=== PATIENT | male | born 1975 | race Caucasian/White ===

== ENCOUNTER 2019-10-30 12:58 | Outpatient (RCR) | payer OTHER, SELFPAY ==
[2018-12-21 08:51] VITALS: BMI 20.1
== END 2019-11-13 23:59 ==
LOC: EMPH 12:58
PROVIDERS: Visit Provider Family Medicine Geriatric Medicine
DX: Z11.59 Encounter for screening for other viral diseases (principal)
CPT/HCPCS: 87635; U0003

== ENCOUNTER 2020-01-02 08:47 | Outpatient (RCR) | payer OTHER, SELFPAY ==
[2018-12-21 08:51] VITALS: BMI 20.1
== END 2020-01-13 23:59 ==
LOC: EMPH 08:47
PROVIDERS: Referring Provider Family Medicine Geriatric Medicine; Visit Provider Family Medicine Geriatric Medicine
DX: Z03.818 Encounter for observation for suspected exposure to other biological agents ruled out (principal)
CPT/HCPCS: 87426

== ENCOUNTER 2020-01-23 09:31 | Outpatient (RCR) | payer OTHER, SELFPAY ==
[2018-12-21 08:51] VITALS: BMI 20.1
[2020-01-23 11:46] LABS: Probe Check PASS
== END 2020-02-13 23:59 ==
LOC: EMPH 09:31
PROVIDERS: Referring Provider Family Medicine Geriatric Medicine; Visit Provider Family Medicine Geriatric Medicine
DX: U07.1 COVID-19 (principal)
CPT/HCPCS: 87426; 87635; U0002

== ENCOUNTER 2020-05-04 09:58 | Outpatient (RCR) | payer OTHER, SELFPAY ==
[2018-12-21 08:51] VITALS: BMI 20.1
== END 2020-05-13 23:59 ==
LOC: EMPH 09:58
PROVIDERS: Visit Provider Family Medicine Geriatric Medicine
DX: Z03.818 Encounter for observation for suspected exposure to other biological agents ruled out (principal)
CPT/HCPCS: 87426

== ENCOUNTER 2020-05-29 16:58 | Outpatient (RCR) | payer OTHER, SELFPAY ==
[2018-12-21 08:51] VITALS: BMI 20.1
== END 2020-06-12 23:59 ==
LOC: LABSPEC 16:58
PROVIDERS: Visit Provider Family Medicine Geriatric Medicine
DX: Z03.818 Encounter for observation for suspected exposure to other biological agents ruled out (principal)
CPT/HCPCS: 87426

== ENCOUNTER 2020-07-10 09:11 | Outpatient (RCR) | payer OTHER, SELFPAY ==
[2018-12-21 08:51] VITALS: BMI 20.1
== END 2020-07-13 23:59 ==
LOC: LABSPEC 09:11
PROVIDERS: PCP Family Medicine; Referring Provider Family Medicine Geriatric Medicine; Visit Provider Family Medicine Geriatric Medicine
DX: Z03.818 Encounter for observation for suspected exposure to other biological agents ruled out (principal)
CPT/HCPCS: 87426

== ENCOUNTER 2020-09-04 09:28 | Outpatient (RCR) | payer OTHER, SELFPAY ==
[2018-12-21 08:51] VITALS: BMI 20.1
== END 2020-09-12 23:59 ==
LOC: EMPH 09:28
PROVIDERS: PCP Family Medicine; Referring Provider Family Medicine Geriatric Medicine; Visit Provider Family Medicine Geriatric Medicine
DX: Z03.818 Encounter for observation for suspected exposure to other biological agents ruled out (principal)
CPT/HCPCS: 87426

== ENCOUNTER 2020-12-03 14:00 | Outpatient (RCR) | payer OTHER, SELFPAY ==
[2018-12-21 08:51] VITALS: BMI 20.1
== END 2020-12-13 23:59 ==
LOC: EMPH 14:00
PROVIDERS: PCP Family Medicine; Referring Provider Family Medicine Geriatric Medicine; Visit Provider Family Medicine Geriatric Medicine
DX: Z03.818 Encounter for observation for suspected exposure to other biological agents ruled out (principal)
CPT/HCPCS: 87426

== ENCOUNTER 2021-04-12 12:29 | Outpatient (RCR) | payer OTHER, SELFPAY ==
[2020-12-14 00:03] VITALS: BMI 20.1
== END 2021-04-12 23:59 ==
LOC: EMPH 12:29
PROVIDERS: PCP Family Medicine; Referring Provider Family Medicine Geriatric Medicine; Visit Provider Family Medicine Geriatric Medicine
DX: Z03.818 Encounter for observation for suspected exposure to other biological agents ruled out (principal)
CPT/HCPCS: 87426

== ENCOUNTER 2021-04-15 10:36 | Outpatient (RCR) | payer OTHER, SELFPAY ==
[2021-04-13 00:07] VITALS: BMI 20.1
== END 2021-05-13 23:59 ==
LOC: EMPH 10:36
PROVIDERS: PCP Family Medicine; Referring Provider Family Medicine Geriatric Medicine; Visit Provider Family Medicine Geriatric Medicine
DX: Z03.818 Encounter for observation for suspected exposure to other biological agents ruled out (principal)
CPT/HCPCS: 87426

== ENCOUNTER → 2024-01-23 | Outpatient (CLI) | payer OTHER, SELFPAY ==
[2024-01-23 15:25] LABS: PSA,Total - Annual Screen 0.31 ng/mL (0.00-4.00)
== END | disposition home or self-care (01) ==
LOC: LAB 14:21
PROVIDERS: PCP Family Medicine; Referring Provider Family Medicine; Visit Provider Family Medicine
DX: Z12.5 Encounter for screening for malignant neoplasm of prostate (principal)
CPT/HCPCS: 36415; 84153; G0103

== ENCOUNTER 2024-09-17 10:56 | Day surgery (SDC) | payer OTHER, SELFPAY ==
[2024-09-17] VITALS (8 sets, daily range): BP systolic 88–102; BP diastolic 62–80; PULSE 47–51; RESP 12–18; TEMP 36.1–36.4; O2SAT 96–100; BMI 20.2
[2024-09-17] MEDS: Lactated Ringers 1,000 ML 15 ML IV (11:12)
--- NOTE | 2024-09-17 11:41 | PRE.ANES_ITS ---
ASA Classification* ASA Classification ASA Classification: 1 Assessment & Plan Anesthesia* Anesthesia Assessment Anesthesia Assessment: Discussed sedation and/or anesthesia options, risks, benefits, and alternatives with patient/parents/legal guardian/POA. Questions invited. The patient/parents/legal guardian/POA seems to understand and agrees to proceed with anesthesia plan. Reviewed the physical assessment, medical history, allergy history and patient home medications list prior to surgery/procedure/anesthetic and documented any changes. Performed airway and anesthesia risk assessments. Anesthesia Type Anesthesia Type: MAC History Source History Obtained from:: Patient and Chart Anesthesia Focused Assessment* Temperature: 97.5 F Pulse Rate: 47 Blood Pressure: 102/80 Respiratory Rate: 16 Pulse Ox: 100 Oxygen Delivery Method: Room Air Airway Assessment Mouth opens: >3 cm Mallampati Score: II Teeth Condition: Intact Neck Range of motion (ROM): Full ROM Labs Anesthesia Preop lab: CBC WBC 4.8 K/mm3 (4.4-11.0) 06/11/24 10:43 06/11/24 RBC 4.73 M/mm3 (4.6-6.2) 06/11/24 10:43 06/11/24 Hgb 14.3 g/dL (13.0-16.5) 06/11/24 10:43 06/11/24 Hct 42.3 % (40-54) 06/11/24 10:43 06/11/24 Plt Count 224 K/mm3 (150-450) 06/11/24 10:43 06/11/24 CHEMISTRY Potassium 4.3 mmol/L (3.3-5.1) 06/11/24 10:43 06/11/24 Sodium 139 mmol/L (133-145) 06/11/24 10:43 06/11/24 Phosphorus 3.4 mg/dL (2.7-4.5) 06/11/24 10:43 06/11/24 BUN 26 mg/dL (4-19) H 06/11/24 10:43 06/11/24 Creatinine 0.93 mg/dL (0.70-1.20) 06/11/24 10:43 06/11/24 Glucose 88 mg/dL (70-99) 06/11/24 10:43 06/11/24 COAG Pre-Assessment Diagnosis/Proposed Procedure Planned Operative Procedure(s): colonoscopy Anesthesia History Anesthesia History - supervisor grain and yeast plants: Anesthesia History - supervisor grain and yeast plants Hx Hospitalization No 09/13/24 08:24 Any Problems With Anesthesia No 09/13/24 08:24 Cholinesterase deficiency No 09/13/24 08:24 You/Your Family Experience No 09/13/24 08:24 fever (hyperthermia) with Relationship Recent Exposure to Contagious No 09/17/24 11:18 Disease Does patient have nerve No 09/13/24 08:24 stimulator Patient instructed to have device shut off --Does patient have Pacemaker No 09/17/24 11:18 or ICD? When Was Last Pacemaker Check QUESTION #4 FULL TEXT: You/Your Family Experience fever (hyperthermia) with Anesthesia Last Oral Intake Last Oral intake: Last Oral Intake NPO since 08:00 09/17/24 11:18 Meds taken in AM with sips of water? Meds patient instructed to take am of surgery PONV PONV - supervisor grain and yeast plants: PONV - supervisor grain and yeast plants Female No 09/13/24 08:24 HX of Motion Sickness No 09/13/24 08:24 HX of N/V After Surgery No 09/13/24 08:24 Non-Smoker Yes 09/13/24 08:24 Duration of Surgery greater No 09/13/24 08:24 than 60 minutes Number of Risk Factors 1 09/13/24 08:24 PONV Score Low Risk 09/13/24 08:24 Height & Weight Height & Weight: Anesthesia: Height & Weight Height 6 ft 2 in 09/17/24 11:18 Weight: 71.4 kg 09/17/24 11:18 Body Mass Index (BMI) 20.2 09/17/24 11:18 Respiratory Assessment Respiratory Assessment - supervisor grain and yeast plants: Respiratory Tract Infection Hx - supervisor grain and yeast plants Hx Respiratory Tract Infection No 09/13/24 08:24 STOP Sleep Apnea STOP Sleep Apnea - supervisor grain and yeast plants: STOP Sleep Apnea - supervisor grain and yeast plants Hx Hypertension No 09/13/24 08:24 Hx Sleep Apnea No 09/13/24 08:24 CPAP No 01/19/15 10:46 BIPAP No 01/14/15 08:31 Do you snore loudly (louder Yes 09/13/24 08:24 than talking or can be heard Do you often feel tired/ Yes 09/13/24 08:24 fatigued/ sleepy during daytime? Has anyone observed you stop No 09/13/24 08:24 breathing during sleep? STOP Results Positive 09/13/24 08:24 QUESTION #5 FULL TEXT : Do you snore loudly (louder than talking or can be heard through closed doors)? Tobacco Use History Tobacco Use History - supervisor grain and yeast plants: Tobacco Use History - supervisor grain and yeast plants Tobacco Use Smoking Status Never smoker 09/13/24 08:24 Hx Tobacco Use No 09/13/24 08:24 Years Smoking Packs Smoked per Day Smoking Cessation Date was within the last 15 years Hx Smoking Cessation Date Hx Smoking Cessation Counseling Hematologic Medial History Hematologic Hx - supervisor grain and yeast plants: Hematologic Medical Hx - doughnut fryer Hx of Blood Transfusion No 09/13/24 08:24 Hx of Transfusion in last 3 No 09/13/24 08:24 Months Date of Last Transfusion (if within last 3 months) Ever experience any problems No 09/13/24 08:24 with transfusion(s)? Specify any problems Hx of Preganancy in last 3 N/A 09/13/24 08:24 Months Nurse Filling Out Transfusion JZOLLINGE 09/13/24 08:24 & Questions: Date: 09/13/24 09/13/24 08:24 Time: 08:09/13/24 08:24 Patient unable to answer at this time (ie. confused, unrespo /Reproduction History /Reproductive History - supervisor grain and yeast plants: /Reproductive Hx- supervisor grain and yeast plants Hx Now No 09/13/24 08:24 Gestational Age (in weeks): EDC: Hx Hx Para Hx Section SAB No 09/13/24 08:24 Active Medications Active Medications: Current Medications Generic Name Dose Route Start Last Admin Trade Name Freq PRN Reason Stop Dose Admin Lactated Ringer's 1,000 mls @ 15 mls/hr 09/17/24 11:15 09/17/24 11:12 IV 15 mls/hr .Q48H LIDA Administration PFSH Medical History Wears contact lenses Wears glasses Alcohol use Non-smoker Cellulitis of left ankle Bee sting Hay fever Allergy/AdvReac Type Severity Reaction Status Date / Time No Known Allergies Allergy Verified 09/17/24 11:12 Family History Other Skin cancer Surgical History History of hernia repair Social History Smoking Status: Never smoker alcohol intake: current alcohol intake frequency: a few times a month Alcohol type: beer Review of Systems (Anesthesia) ROS Narrative System reviewed and no additional complaints, except as documented.
--- NOTE | 2024-09-17 12:13 | HP.PCM_ITS ---
[facility] - General General Date of Admission: 09/17/24 Date of Service: 09/17/24 Chief Complaint: Screening colonoscopy HPI Narrative ANCELMO HARP, is a 49 M who presents today for screening colonoscopy. He has never had a colonoscopy in the past. He has not had any problems with his bowels. He does not take any medicines on daily basis. He has no known drug allergies. [facility] Medical History Wears contact lenses Wears glasses Alcohol use Non-smoker Cellulitis of left ankle Bee sting Hay fever Allergy/AdvReac Type Severity Reaction Status Date / Time No Known Allergies Allergy Verified 09/17/24 11:12 Family History Other Skin cancer Surgical History History of hernia repair Social History Smoking Status: Never smoker alcohol intake: current alcohol intake frequency: a few times a month Alcohol type: beer ROS Constitutional Constitutional: Denies fatigue, fever(s), poor appetite, weight gain or weight loss Gastrointestinal Gastrointestinal: Denies belching, bloating, change in bowel habits, change in stool character, chewing difficulty, coffee ground emesis, constipation, cramping, diarrhea, dyspepsia, dysphagia, early satiety, excessive flatus, fecal incontinence, heartburn, hematemesis, hematochezia, hemorrhoids, loose stools, melena, nausea, odynophagia, rectal bleeding, tenesmus, vomiting or weight changes Vital Signs Vital Signs Vital Signs: 09/17/24 11:18 09/17/24 11:18 09/17/24 11:43 Temperature 97.5 F L 97.5 F L Temperature Source Temporal Pulse Rate 47 L 47 L Respiratory Rate 16 16 Respiratory Pattern Normal Blood Pressure 102/80 102/80 Blood Pressure Mean 87 Blood Pressure Source Monitor Blood Pressure Position Semi-Fowlers Blood Pressure Location Left Arm Pulse Ox 100 100 Oxygen Delivery Method Room Air Room Air Weight Weight: 157 lb 6.561 oz Body Mass Index (BMI) 20.2 Physical Exam Const alert, oriented x3, no apparent distress and healthy appearing General Appearance: cooperative GI normal to inspection, nondistended, normoactive bowel sounds, soft to palpation, non-tender and non-distended Percussion: normal to percussion Rectal Exam: deferred Assessment & Plan Assessment/Plan (1) Encounter for screening colonoscopy: PLAN: He was explained alternatives, risk and benefits include not withstanding bleeding, infection, sepsis, perforation, need for emergent urgent . He will have an ASA of 3.
--- NOTE | 2024-09-17 12:55 | OP.COLON_ITS ---
Patient Name: Michelet Berg Procedure Date: 09/17/2024 12:31 PM Date of : 1975 Age: 49 Procedure: Colonoscopy Indications: Screening for colorectal malignant neoplasm Providers: Nick Edmond DO Referring MD: Patrice Hawkins Medicines: Monitored Anesthesia Care Patient Profile: This is a 49 year old male. Refer to note in patient chart for documentation of history and physical. Last Colonoscopy: none. The patient's first colonoscopy is today. Complications: No immediate complications. Procedure: Pre-Anesthesia Assessment: - Prior to the procedure, a History and Physical was performed, and patient medications and allergies were reviewed. The patient is competent. The risks and benefits of the procedure and the sedation options and risks were discussed with the patient. All questions were answered and informed consent was obtained. Patient identification and proposed procedure were verified by the physician in the pre-procedure area. Mental Status Examination: alert and oriented. Airway Examination: normal oropharyngeal airway and neck mobility. Respiratory Examination: clear to auscultation. CV Examination: normal. Prophylactic Antibiotics: The patient does not require prophylactic antibiotics. Prior Anticoagulants: The patient has taken no anticoagulant or antiplatelet agents except for NSAID medication. ASA Grade Assessment: II - A patient with mild systemic disease. After reviewing the risks and benefits, the patient was deemed in satisfactory condition to undergo the procedure. The anesthesia plan was to use monitored anesthesia care (MAC). Immediately prior to administration of medications, the patient was re-assessed for adequacy to receive sedatives. The heart rate, respiratory rate, oxygen saturations, blood pressure, adequacy of pulmonary ventilation, and response to care were monitored throughout the procedure. The physical status of the patient was re-assessed after the procedure. After I obtained informed consent, the scope was passed under direct vision. Throughout the procedure, the patient's blood pressure, pulse, and oxygen saturations were monitored continuously. The Colonoscope was introduced through the anus and advanced to the cecum, identified by appendiceal orifice and ileocecal valve. The colonoscopy was performed without difficulty. The patient tolerated the procedure well. The quality of the bowel preparation was adequate. The ileocecal valve, appendiceal orifice, and rectum were photographed. Scope In: 12:37:37 PM Scope Withdrawal Time 0 hours 10 minutes 9 seconds Scope Out: 12:51:20 PM Total Procedure Duration Time 0 hours 13 minutes 43 seconds Findings: The perianal and digital rectal examinations were normal. The colon (entire examined portion) appeared normal. Impression: - The entire examined colon is normal. - No specimens collected. Recommendation: - Discharge patient to home. - Resume previous diet. - Continue present medications. - Repeat colonoscopy in 10 years for screening purposes. Procedure Code(s): --- Professional --- G0121, Colorectal cancer screening; colonoscopy on individual not meeting criteria for high risk CPT copyright 2021 [employer]. All rights reserved. The codes documented in this report are preliminary and upon hospital admissions officer review may be revised to meet current compliance requirements. Nick Edmond DO 09/17/2024 12:54:59 PM This report has been signed electronically. Number of Addenda: 0 Note Initiated On: 09/17/2024 12:31 PM
--- NOTE | 2024-09-17 12:55 | OP.PROVAT_ITS ---
09/17/2024 Patrice Hawkins Re : Colonoscopy procedure for Michelet Berg [place] This procedure was performed on Tuesday, September 17, 2024. My impressions and recommendations are as follows: Impressions : - The entire examined colon is normal. - No specimens collected. Recommendations : - Discharge patient to home. - Resume previous diet. - Continue present medications. - Repeat colonoscopy in 10 years for screening purposes. My findings are described in the full procedure note, which is enclosed. If I can be of further assistance, please feel free to contact me at . Sincerely, Nick Edmond, 09/17/2024 12:54:59 PM This report has been signed electronically.
--- NOTE | 2024-09-17 13:01 | PCM.POST.ANE ---
Anesthesia: Postop Eval I Current Vital Signs Temperature: 97 F Pulse Rate: 50 Blood Pressure: 98/62 Respiratory Rate: 16 Pulse Ox: 100 Assessment Airway patent: Yes Spontaneous unlabored respirations: Yes nausea: No Vomiting: No Anesthesia Complication: No Fluid Hydration Crystalloid volume administer (ml): 400 Total IV fluid infused: 400 Progress Note Anesthesia document: Postop Eval 1 completed: Yes
--- NOTE | 2024-09-17 17:03 | POSTOPAN2_ITS ---
Anesthesia Postop Eval I Sum Postop Eval Completion status Anesthesia document: Postop Eval 1 completed: Yes Anesthesia Postop Eval I Summary Anesthesia Postop Eval I Summary: Anesthesia Postop Eval I: Assessment Summary Airway patent Yes 09/17/24 13:01 [email or web address] Spontaneous unlabored Yes 09/17/24 13:01 [email or web address] respirations Mental status nausea No 09/17/24 13:01 [email or web address] Vomiting No 09/17/24 13:01 [email or web address] Anesthesia Postop Eval I: Fluid Summary Crystalloid volume administer 400 09/17/24 13:01 [email or web address] (ml) Colloids volume administered ( ml) Blood Product volume administered (ml) Total IV fluid infused 400 09/17/24 13:01 [email or web address] Anesthesia Postop Eval I: Summary Notes Anesthesia Complication No 09/17/24 13:01 [email or web address] Anesthesia Complication Comment: Post-operative progress note Anesthesia: Postop Eval II Evaluation Mental status: Awake and Calm Pain Level: 1 nausea: No Vomiting: No Complications Anesthesia Complication: No
--- NOTE | 2024-09-17 17:03 | PCM.POSTANE2 ---
Anesthesia Postop Eval I Sum Postop Eval Completion status Anesthesia document: Postop Eval 1 completed: Yes Anesthesia Postop Eval I Summary Anesthesia Postop Eval I Summary: Anesthesia Postop Eval I: Assessment Summary Airway patent Yes 09/17/24 13:01 RECOVERY OPERATOR [email or web address] Spontaneous unlabored Yes 09/17/24 13:01 RECOVERY OPERATOR [email or web address].[email or web address] respirations Mental status nausea No 09/17/24 13:01 RECOVERY OPERATOR [email or web address] Vomiting No 09/17/24 13:01 RECOVERY OPERATOR [email or web address] Anesthesia Postop Eval I: Fluid Summary Crystalloid volume administer 400 09/17/24 13:01 RECOVERY OPERATOR [email or web address].[email or web address] (ml) Colloids volume administered ( ml) Blood Product volume administered (ml) Total IV fluid infused 400 09/17/24 13:01 RECOVERY OPERATOR [email or web address] Anesthesia Postop Eval I: Summary Notes Anesthesia Complication No 09/17/24 13:01 RECOVERY OPERATOR [email or web address].[email or web address] Anesthesia Complication Comment: Post-operative progress note Anesthesia: Postop Eval II Evaluation Mental status: Awake and Calm Pain Level: 1 nausea: No Vomiting: No Complications Anesthesia Complication: No
== END 2024-09-17 13:36 | disposition home or self-care (01) ==
LOC: EN 10:57 → AC 10:59
PROVIDERS: PCP Family Medicine; Referring Provider Family Medicine; Visit Provider Internal Medicine Gastroenterology
PROC: 0DJD8ZZ Inspection of Lower Intestinal Tract, Via Natural or Artificial Opening Endoscopic (ICD-10-PCS; CPT 45378; principal; 2024-09-17 11:55)
DX: Z12.11 Encounter for screening for malignant neoplasm of colon (principal)
CPT/HCPCS: G0121